=== PATIENT | female | born 1970 | race Caucasian/White ===

== ENCOUNTER 2018-01-05 09:29 | Emergency (ER) | payer MEDICAID, OTHER ==
[~2018-01-05] VITALS: Ht 149.9 cm; Wt 60.0 kg
[2018-01-05] MEDS ORDERED: KETOROLAC 60MG/2ML VIAL IM ONE (14:15)
[2018-01-05 14:53] VITALS: BP 116/54
[2018-01-05 15:12] LABS: CLARITY URINE CLEAR (CLEAR); COLOR URINE YELLOW (YELLOW); KETONES URINE NEGATIVE (NEGATIVE); LEUKOCYTE ESTERASE URINE NEGATIVE (NEGATIVE); NITRITE URINE NEGATIVE (NEGATIVE); OCCULT BLOOD URINE 1+ (NEGATIVE); PH URINE 5.5 (4.5-8.0); PROTEIN URINE NEGATIVE (NEGATIVE); SPECIFIC GRAVITY URINE 1.011 (1.005-1.030); UROBILINOGEN URINE 0.2 E.U./dL (0.2-1.0)
== END 2018-01-05 16:05 | disposition home or self-care (01) ==
LOC: ER 09:29
DX: M54.5 Low back pain (principal); R30.0 Dysuria; R31.29 Other microscopic hematuria; M53.3 Sacrococcygeal disorders, not elsewhere classified
CPT/HCPCS: 81003; 81025; 96372; 99283; J1885; Z7610